=== PATIENT | male | born 1940 | race Caucasian/White ===

== ENCOUNTER 2016-08-23 05:34 | Observation (INO) ==
[2016-08-23] MEDS ORDERED: 0.9 % Sodium Chloride 500 ML IVC ONE (05:47)
[2016-08-23] MEDS ORDERED: Aspirin 81 MG TAB.CHEW PO ONE (05:47)
--- NOTE | 2016-08-23 05:50 | Emergency Department Note ---
Disposition Clinical Impression: Hyperglycemia Hypertension Qualifiers: Hypertension type: essential hypertension Qualified Code(s): I10 - Essential ( primary) hypertension Chest pain Qualifiers: Chest pain type: precordial pain Qualified Code(s): R07.2 - Precordial pain Disposition: Admitted As Inpatient Condition: Fair Chest Pain HPI - General Chief Complaint: ED General Medical Stated Complaint: HTN/ High BG Time Seen by Provider: 08/23/16 05:46 Source: patient Mode of arrival: ambulatory Limitations: no limitations Vital Signs Reviewed: Yes Nursing Notes Reviewed: Yes - History of Present Illness HPI Narrative: 76-year-old male history of hypertension, diabetes, tobacco use presents for evaluation of high blood pressure as well as hyperglycemia. Patient notes that during the night he "felt funny". States that he possibly overdid it with exerting himself yesterday. Patient's not able to quite accurately described as feeling but states that he felt hot and went outside to open the windows. The patient subsequently notes a left sided chest pressure without radiation. Nonexertional. Nonreproducible. No aggravating or alleviating factors. Patient denies a history of any ACS or cardiac disease. Patient denies any nausea vomiting. Does report some sweating. No abdominal pain. No dyspnea. Patient has not had any recent stress tests or cardio vascular exams. - Related Data Home Medications Medication Instructions Recorded Confirmed Aspirin [Ecotrin] 325 mg PO DAILY 08/23/16 08/23/16 Calcium Citrate 200 mg PO TID 08/23/16 08/23/16 Diltiazem [Cardizem] 30 mg PO DAILY 08/23/16 08/23/16 Folic Acid 1 mg PO DAILY 08/23/16 08/23/16 Lisinopril [Zestril] 20 mg PO DAILY 08/23/16 08/23/16 Metformin HCl [Glucophage] 1,000 mg PO BID 08/23/16 08/23/16 Methotrexate [Otrexup] 15 mg PO SA 08/23/16 08/23/16 Wood/Poly/HC *EAR* SOLN 1 drop OP QID 08/23/16 08/23/16 [Cortisporin *EAR* SOLN] Armstrong-3/Dha/Epa/Fish Oil [Fish Oil 1,000 mg PO DAILY 08/23/16 08/23/16 1,000 mg Softgel] Omeprazole [PriLOSEC] 20 mg PO DAILY 08/23/16 08/23/16 Penicillin VK [Pencillin VK] 500 mg PO BID 08/23/16 08/23/16 Simvastatin [Zocor] 40 mg PO HS 08/23/16 08/23/16 glipiZIDE [Glucotrol] 5 mg PO QAM 08/23/16 08/23/16 Allergies Allergy/AdvReac Type Severity Reaction Status Date / Time No Known Allergies Allergy Verified 08/23/16 05:37 All systems ED: reviewed and negative except as stated. Constitutional: Reports: as per HPI Eyes: Reports: as per HPI ENT ED: Reports: as per HPI Cardiovascular: Reports: as per HPI, chest pain Respiratory: Reports: as per HPI. Denies: cough, dyspnea Gastrointestinal: Reports: as per HPI. Denies: abdominal pain, nausea, vomiting Genitourinary: Reports: as per HPI Musculoskeletal: Reports: as per HPI Integumentary: Reports: as per HPI Neurological: Reports: as per HPI Psychiatric: Reports: as per HPI Endocrine: Reports: as per HPI Hematological/Lymphatic: Reports: as per HPI Chest Pain PMH - Past Medical History Medical history: Reports: hypertension, other - Social History Smoking Status: Never smoker Alcohol use: Reports: none Physical Exam - General Limitations: no limitations General appearance: alert, in no apparent distress - Head Head exam: atraumatic, normocephalic, normal inspection - Eye Eye exam: Present: normal appearance, PERRL, EOMI - ENT ENT exam: normal exam, mucous membranes moist - Neck Neck exam: Present: normal inspection, trachea midline - Chest Chest inspection: Present: normal inspection, symmetric chest wall rise - Respiratory Respiratory exam: Present: normal lung sounds bilaterally. Absent: respiratory distress - Cardiovascular Cardiovascular exam: Present: regular rate, normal rhythm - Abdominal Exam Abdominal exam: Present: soft, Non-Tender - Extremities Exam Extremities exam: Present: normal inspection. Absent: pedal edema - Back Exam Back exam: Present: normal inspection - Neurological Exam Neurological exam: Present: alert, oriented X3, CN II-XII intact - Skin Skin exam: Present: warm, dry, intact, normal color Course Course Narrative: Patient seen and examined. Patient is in no acute distress. Patient is hypertensive with systolic blood pressure in the 170s. 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 Patient also describes a funny feeling during the night. Patient is diabetic with multiple factors for ACS. Patient will get a cardiac evaluation including chest x-ray, EKG and troponin. Patient will also be given aspirin as well as nitroglycerin. Disposition likely admission to the hospital service for further evaluation and monitoring. - Reevaluation(s) Reevaluation #1: Notes that patient pain has improved following the second nitroglycerin Time: 06:28 Vital Signs Temperature 98.0 F 08/23/16 05:37 Pulse Rate 86 08/23/16 05:37 Respiratory Rate 18 08/23/16 05:37 Blood Pressure 177/105 08/23/16 05:37 O2 Sat by Pulse Oximetry 97 08/23/16 05:37 Temperature 98.1 F 08/23/16 18:46 Pulse Rate 79 08/23/16 18:46 Respiratory Rate 16 08/23/16 18:46 Blood Pressure 170/83 08/23/16 18:46 O2 Sat by Pulse Oximetry 96 08/23/16 18:46 Oxygen Delivery Oxygen Delivery Room Air Chest Pain - MDM Narrative Medical decision making narrative: 76-year-old male returns for evaluation of chest pain. Patient also notes a "funny feeling"over night. Patient noted a feeling of chest pressure just prior to arrival. Notes a nonexertional without radiation. Patient does have risk factors and has not been evaluated in the recent past by cardiology. Patient states his blood pressure was high. Patient is also noted be hyperglycemic. Patient's history was concerning for ACS in an elderly diabetic male. Patient received aspirin as well as nitroglycerin. Patient's pain did improve with the second dose of nitroglycerin. Patient's resting comfortably. Patient is not in any acute distress. Patient does not present with signs symptoms consistent of pulmonary embolism. No ripping or tearing chest pain in the back. Patient's symptoms are more consistent with ACS. Patient will be signed out to the oncoming provider for continued patient care. Patient will likely be admitted for ACS chest pain rule out. - Lab Data Lab results reviewed: Yes I reviewed the patient's lab results. Result diagrams: 08/23/16 06:28 08/23/16 06:28 Lab Results 08/23/16 08/23/16 08/23/16 Range/Units 06:28 06:28 06:28 WBC 9.5 (4.3-11.1) K/mcL RBC 3.79 L (4.19-5.50) M/mcL Hgb 11.0 L (12.9-16.9) g/dL Hct 33.9 L (37.5-50.1) % MCV 89.4 (83.0-100.0) fL MCH 29.0 (28.0-33.3) pg MCHC 32.4 (31.6-35.5) g/dL RDW 14.7 H (11.5-14.5) % Plt Count 304 (140-400) K/mcL MPV 9.6 (9.4-12.4) fL Immature Gran % 0.4 (0-4) % Seg Neutrophils % 74.6 % Lymphocytes % 14.5 % Monocytes % 9.1 % Eosinophils % 1.1 % Basophils % 0.3 % Neutrophils # 7.1 (1.6-8.9) K/mcL Lymphocytes # 1.4 (0.6-4.6) K/mcL Monocytes # 0.9 (0.0-1.3) K/mcL Eosinophils # 0.1 (0.0-0.6) K/mcL Basophils # 0.0 (0.0-0.2) K/mcL Sodium 134 L (136-145) mEq/L Potassium 4.0 (3.5-4.5) mEq/L Chloride 104 (98-109) mEq/L Carbon Dioxide 19 (19-29) mEq/L BUN 18 (8-26) mg/dL Creatinine 0.84 (0.72-1.25) mg/dL Est GFR ( Amer) > 60 (> 60) Est GFR (Non-Af Amer) > 60 (> 60) BUN/Creatinine Ratio 21 (6-26) Glucose 219 H (70-99) mg/dL Est Mean Plasma Glucose mg/dl Hemoglobin A1c ( - 5.6) % Calculated Osmolality 287 (280-300) Calcium 8.8 (8.6-10.8) mg/dL Phosphorus 3.2 (2.3-4.7) mg/dL Magnesium 1.5 L (1.6-2.6) mg/dL Troponin I (0-0.03) ng/mL B-Natriuretic Peptide 45 (0-100) pg/mL Triglycerides 87 (< 150) mg/dL Cholesterol 104 (< 200) mg/dL LDL Cholesterol, Calc 57 (0-99) mg/dL VLDL Cholesterol, Calc 17 (< 31) mg/dL HDL Cholesterol 30 L (40-59) mg/dL Cholesterol/HDL Ratio 3.5 (0-4.9) Vitamin B12 (213-816) pg/mL Folate (7.0-31.4) ng/mL 08/23/16 08/23/16 08/23/16 Range/Units 06:28 06:28 06:28 WBC (4.3-11.1) K/mcL RBC (4.19-5.50) M/mcL Hgb (12.9-16.9) g/dL Hct (37.5-50.1) % MCV (83.0-100.0) fL MCH (28.0-33.3) pg MCHC (31.6-35.5) g/dL RDW (11.5-14.5) % Plt Count (140-400) K/mcL MPV (9.4-12.4) fL Immature Gran % (0-4) % Seg Neutrophils % % Lymphocytes % % Monocytes % % Eosinophils % % Basophils % % Neutrophils # (1.6-8.9) K/mcL Lymphocytes # (0.6-4.6) K/mcL Monocytes # (0.0-1.3) K/mcL Eosinophils # (0.0-0.6) K/mcL Basophils # (0.0-0.2) K/mcL Sodium (136-145) mEq/L Potassium (3.5-4.5) mEq/L Chloride (98-109) mEq/L Carbon Dioxide (19-29) mEq/L BUN (8-26) mg/dL Creatinine (0.72-1.25) mg/dL Est GFR ( Amer) (> 60) Est GFR (Non-Af Amer) (> 60) BUN/Creatinine Ratio (6-26) Glucose (70-99) mg/dL Est Mean Plasma Glucose 189 mg/dl Hemoglobin A1c 8.2 H ( - 5.6) % Calculated Osmolality (280-300) Calcium (8.6-10.8) mg/dL Phosphorus (2.3-4.7) mg/dL Magnesium (1.6-2.6) mg/dL Troponin I 0.01 (0-0.03) ng/mL B-Natriuretic Peptide (0-100) pg/mL Triglycerides (< 150) mg/dL Cholesterol (< 200) mg/dL LDL Cholesterol, Calc (0-99) mg/dL VLDL Cholesterol, Calc (< 31) mg/dL HDL Cholesterol (40-59) mg/dL Cholesterol/HDL Ratio (0-4.9) Vitamin B12 301 (213-816) pg/mL Folate 15.4 (7.0-31.4) ng/mL - Radiology Data Radiology results reviewed: Yes I reviewed the patient's radiology results. Chest X-Ray 08/23/16 05:47 IMPRESSION: No acute cardiac or pulmonary disease. D/ / Kervin Lozano MD / Kervin Lozano MD Interpreting Provider: Kervin Lozano MD - EKG Data EKG attestation: Yes I reviewed and interpreted this EKG. EKG shows normal: sinus rhythm Rate: normal Rhythm: NSR [place]/QRS: normal Heart block present: 1st Degree Q waves: III, v1 QTc: other (388) Ectopy: PVC (multifocal) When compared to previous EKG there are: no significant changes Interpretation: unchanged when compared to prior tracing (date) (12/25/2006), nonspecific ST-T wave changes Heart Score - Score History: Moderately Suspicious EKG: Non Specific repolarisation Disturbance Age: Greater than 65 Risk Factors: Equal/Greater than 3 risk factor or history of atherosclerotic disease Troponin: Less than normal limit HEART Score Total: 6 S.B.A.R. - S.B.A.R. Situation: Demographics Background: Presenting Complaint, Relevant PMH, Meds, & Allergies Assessment: Vital Signs, Course and respsone to treatment, Patient/Family Expectation Recommendation: Barrier(s) to disposition, Recommendation based on pending studies, treatments, or consults S.B.A.R. Report Given to: Dr. Manuel [email or web address] Repor Time: 06:56 Attestation Statement - Attestation Attestation: I, Mumtaz Osman MD, personally evaluated this patient and discussed their management with the resident physician. I reviewed the resident's note and agree with the documented findings, medical decision making, and plan of care. 76-year-old male presents to the emergency department with a complaint of just not feeling all since about 9:30 last evening. Patient states that he just feels funny. He has had some episodes of diaphoresis and some left sided chest discomfort. Some occasional palpitations. Also feels short of breath. No cough or fever. On examination patient is a well-developed well-nourished elderly male in no acute distress. He is alert and oriented 3. There is no cyanosis or diaphoresis. He does appear somewhat anxious. Chest is nontender to palpation. Breath sounds are clear and equal bilaterally. Heart regular rate and rhythm. Abdomen is soft and nontender with normal bowel sounds. No gross focal neurological deficits. Labs reviewed. EKG shows a normal sinus rhythm with frequent PVCs, no acute changes. Chest x-ray negative. The hospitalist, Dr. Trivedi, was consulted and accepted admission of the patient.
[2016-08-23] MEDS: Nitroglycerin 0.4 MG TAB.SUBL SL ONE ×2 (06:06→06:13)
[2016-08-23 06:37] LABS: Basophils % 0.3 %; Eosinophils # 0.1 K/mcL (0.0-0.6); Eosinophils % 1.1 %; Hematocrit 33.9 % (37.5-50.1); Immature Granulocytes % 0.4 % (0-4); Lymphocytes # 1.4 K/mcL (0.6-4.6); Lymphocytes % 14.5 %; Mean Corpuscular HGB Conc 32.4 g/dL (31.6-35.5); Mean Corpuscular Volume 89.4 fL (83.0-100.0); Mean Platelet Volume 9.6 fL (9.4-12.4); Monocytes # 0.9 K/mcL (0.0-1.3); Monocytes % 9.1 %; Neutrophils # 7.1 K/mcL (1.6-8.9); Platelet Count 304 K/mcL (140-400); Red Blood Count 3.79 M/mcL (4.19-5.50); Red Cell Distribution Width 14.7 % (11.5-14.5); Segmented Neutrophils % 74.6 %
[2016-08-23 06:52] LABS: BUN/Creatinine Ratio 21 (6-26); Blood Urea Nitrogen 18 mg/dL (8-26); Calcium 8.8 mg/dL (8.6-10.8); Carbon Dioxide 19 mEq/L (19-29); Chloride 104 mEq/L (98-109); Glucose 219 mg/dL (70-99); Magnesium 1.5 mg/dL (1.6-2.6); Osmolality,Calculated 287 (280-300); Phosphorous 3.2 mg/dL (2.3-4.7); Sodium 134 mEq/L (136-145); eGFR For African Americans > 60 (> 60); eGFR For Non-African Americans > 60 (> 60)
[2016-08-23] MEDS ORDERED: Acetaminophen 325 MG TABLET PO PRN (07:21)
[2016-08-23] MEDS ORDERED: Naloxone 0.4 MG/ML INJ IVP PRN (07:21)
--- NOTE | 2016-08-23 07:25 | Emergency Department Note ---
Disposition Clinical Impression: Hyperglycemia Hypertension Qualifiers: Hypertension type: essential hypertension Qualified Code(s): I10 - Essential ( primary) hypertension Chest pain Qualifiers: Chest pain type: precordial pain Qualified Code(s): R07.2 - Precordial pain Disposition: Admitted As Inpatient Condition: Fair General Adult HPI - General Chief complaint: ED General Medical Stated complaint: HTN/ High BG Time Seen by Provider: 08/23/16 05:46 Source: patient Mode of arrival: ambulatory Limitations: no limitations - History of Present Illness Pain Scale: 2 - Related Data Home Medications Medication Instructions Recorded Confirmed Aspirin [Ecotrin] 325 mg PO DAILY 08/23/16 08/23/16 Calcium Citrate 200 mg PO TID 08/23/16 08/23/16 Diltiazem [Cardizem] 30 mg PO DAILY 08/23/16 08/23/16 Folic Acid 1 mg PO DAILY 08/23/16 08/23/16 Lisinopril [Zestril] 20 mg PO DAILY 08/23/16 08/23/16 Metformin HCl [Glucophage] 1,000 mg PO BID 08/23/16 08/23/16 Methotrexate [Otrexup] 15 mg PO SA 08/23/16 08/23/16 Wood/Poly/HC *EAR* SOLN 1 drop OP QID 08/23/16 08/23/16 [Cortisporin *EAR* SOLN] [place]-3/Dha/Epa/Fish Oil [Fish Oil 1,000 mg PO DAILY 08/23/16 08/23/16 1,000 mg Softgel] Omeprazole [PriLOSEC] 20 mg PO DAILY 08/23/16 08/23/16 Penicillin VK [Pencillin VK] 500 mg PO BID 08/23/16 08/23/16 Simvastatin [Zocor] 40 mg PO HS 08/23/16 08/23/16 glipiZIDE [Glucotrol] 5 mg PO QAM 08/23/16 08/23/16 Allergies Allergy/AdvReac Type Severity Reaction Status Date / Time No Known Allergies Allergy Verified 08/23/16 05:37 Constitutional: Reports: as per HPI Eyes: Reports: as per HPI ENT ED: Reports: as per HPI Cardiovascular: Reports: as per HPI, chest pain Respiratory: Reports: as per HPI. Denies: cough, dyspnea Gastrointestinal: Reports: as per HPI. Denies: abdominal pain, nausea, vomiting Genitourinary: Reports: as per HPI Musculoskeletal: Reports: as per HPI Integumentary: Reports: as per HPI Neurological: Reports: as per HPI Psychiatric: Reports: as per HPI Endocrine: Reports: as per HPI Hematological/Lymphatic: Reports: as per HPI Past Medical History - Past Medical History Medical history: Reports: hypertension, other Psychiatric history: Reports: no psych history - Social History Smoking Status: Never smoker Smokeless Tobacco Status: No Alcohol use: Reports: none Drug use: Reports: none Physical Exam - General Limitations: no limitations General appearance: alert, in no apparent distress Course Vital Signs Temperature 98.0 F 08/23/16 05:37 Pulse Rate 86 08/23/16 05:37 Respiratory Rate 18 08/23/16 05:37 Blood Pressure 177/105 08/23/16 05:37 O2 Sat by Pulse Oximetry 97 08/23/16 05:37 Temperature 98.1 F 08/23/16 18:46 Pulse Rate 79 08/23/16 18:46 Respiratory Rate 16 08/23/16 18:46 Blood Pressure 170/83 08/23/16 18:46 O2 Sat by Pulse Oximetry 96 08/23/16 18:46 Oxygen Delivery Oxygen Delivery Room Air Medical Decision Making - Lab Data Lab results reviewed: Yes I reviewed the patient's lab results. Result diagrams: 08/23/16 06:28 08/23/16 06:28 Lab Results 08/23/16 08/23/16 08/23/16 Range/Units 06:28 06:28 06:28 WBC 9.5 (4.3-11.1) K/mcL RBC 3.79 L (4.19-5.50) M/mcL Hgb 11.0 L (12.9-16.9) g/dL Hct 33.9 L (37.5-50.1) % MCV 89.4 (83.0-100.0) fL MCH 29.0 (28.0-33.3) pg MCHC 32.4 (31.6-35.5) g/dL RDW 14.7 H (11.5-14.5) % Plt Count 304 (140-400) K/mcL MPV 9.6 (9.4-12.4) fL Immature Gran % 0.4 (0-4) % Seg Neutrophils % 74.6 % Lymphocytes % 14.5 % Monocytes % 9.1 % Eosinophils % 1.1 % Basophils % 0.3 % Neutrophils # 7.1 (1.6-8.9) K/mcL Lymphocytes # 1.4 (0.6-4.6) K/mcL Monocytes # 0.9 (0.0-1.3) K/mcL Eosinophils # 0.1 (0.0-0.6) K/mcL Basophils # 0.0 (0.0-0.2) K/mcL Sodium 134 L (136-145) mEq/L Potassium 4.0 (3.5-4.5) mEq/L Chloride 104 (98-109) mEq/L Carbon Dioxide 19 (19-29) mEq/L BUN 18 (8-26) mg/dL Creatinine 0.84 (0.72-1.25) mg/dL Est GFR ( Amer) > 60 (> 60) Est GFR (Non-Af Amer) > 60 (> 60) BUN/Creatinine Ratio 21 (6-26) Glucose 219 H (70-99) mg/dL Est Mean Plasma Glucose mg/dl Hemoglobin A1c ( - 5.6) % Calculated Osmolality 287 (280-300) Calcium 8.8 (8.6-10.8) mg/dL Phosphorus 3.2 (2.3-4.7) mg/dL Magnesium 1.5 L (1.6-2.6) mg/dL Troponin I (0-0.03) ng/mL B-Natriuretic Peptide 45 (0-100) pg/mL Triglycerides 87 (< 150) mg/dL Cholesterol 104 (< 200) mg/dL LDL Cholesterol, Calc 57 (0-99) mg/dL VLDL Cholesterol, Calc 17 (< 31) mg/dL HDL Cholesterol 30 L (40-59) mg/dL Cholesterol/HDL Ratio 3.5 (0-4.9) Vitamin B12 (213-816) pg/mL Folate (7.0-31.4) ng/mL 08/23/16 08/23/16 08/23/16 Range/Units 06:28 06:28 06:28 WBC (4.3-11.1) K/mcL RBC (4.19-5.50) M/mcL Hgb (12.9-16.9) g/dL Hct (37.5-50.1) % MCV (83.0-100.0) fL MCH (28.0-33.3) pg MCHC (31.6-35.5) g/dL RDW (11.5-14.5) % Plt Count (140-400) K/mcL MPV (9.4-12.4) fL Immature Gran % (0-4) % Seg Neutrophils % % Lymphocytes % % Monocytes % % Eosinophils % % Basophils % % Neutrophils # (1.6-8.9) K/mcL Lymphocytes # (0.6-4.6) K/mcL Monocytes # (0.0-1.3) K/mcL Eosinophils # (0.0-0.6) K/mcL Basophils # (0.0-0.2) K/mcL Sodium (136-145) mEq/L Potassium (3.5-4.5) mEq/L Chloride (98-109) mEq/L Carbon Dioxide (19-29) mEq/L BUN (8-26) mg/dL Creatinine (0.72-1.25) mg/dL Est GFR ( Amer) (> 60) Est GFR (Non-Af Amer) (> 60) BUN/Creatinine Ratio (6-26) Glucose (70-99) mg/dL Est Mean Plasma Glucose 189 mg/dl Hemoglobin A1c 8.2 H ( - 5.6) % Calculated Osmolality (280-300) Calcium (8.6-10.8) mg/dL Phosphorus (2.3-4.7) mg/dL Magnesium (1.6-2.6) mg/dL Troponin I 0.01 (0-0.03) ng/mL B-Natriuretic Peptide (0-100) pg/mL Triglycerides (< 150) mg/dL Cholesterol (< 200) mg/dL LDL Cholesterol, Calc (0-99) mg/dL VLDL Cholesterol, Calc (< 31) mg/dL HDL Cholesterol (40-59) mg/dL Cholesterol/HDL Ratio (0-4.9) Vitamin B12 301 (213-816) pg/mL Folate 15.4 (7.0-31.4) ng/mL - Radiology Data Radiology results reviewed: Yes I reviewed the patient's radiology results. Chest X-Ray 08/23/16 05:47 IMPRESSION: No acute cardiac or pulmonary disease. D/ / Kervin Lozano MD / Kervin Lozano MD Interpreting Provider: Kervin Lozano MD S.B.Maurice - STrell Situation: Demographics Background: Presenting Complaint, Relevant PMH, Meds, & Allergies Assessment: Vital Signs, Course and respsone to treatment, Patient/Family Expectation Recommendation: Barrier(s) to disposition, Recommendation based on pending studies, treatments, or consults S.B.A.RStuart Report Given to: Dr. Shikha Heard Repor Time: 07:25 Attestation Statement - Attestation Attestation: I, Mumtaz Osman MD, personally evaluated this patient and discussed their management with the resident physician. I reviewed the resident's note and agree with the documented findings, medical decision making, and plan of care. Please see additional note from this emergency department visit.
[2016-08-23] MEDS ORDERED: D5% in Water 1,000 ML IVC PRN (07:58)
[2016-08-23] MEDS ORDERED: *HR* Dextrose 50 % in Water (Syg) 50 ML SYRINGE IVP PRN (07:58)
[2016-08-23] MEDS ORDERED: Dextrose Gel 15 GM PO PRN ×2 (07:58)
[2016-08-23 08:12] LABS: Chol/HDL Ratio 3.5 (0-4.9); Cholesterol 104 mg/dL (< 200); HDL Cholesterol 30 mg/dL (40-59); LDL Cholesterol,Calculated 57 mg/dL (0-99); Triglycerides 87 mg/dL (< 150)
[2016-08-23 08:20] LABS: Hemoglobin A1C 8.2 %
--- NOTE | 2016-08-23 08:38 | Internal Med History&Physical ---
Date of Encounter: 08/23/16 Time of Encounter: 08:25 Assessment and Plan (1) Chest pain Current visit: Yes Status: Acute Acute precordial chest pain relieved with nitroglycerin. Concern for underlying coronary artery disease. We will trend troponins and do a cardiac stress test. Check lipid profile. Place on telemetry. Qualifiers: Chest pain type: precordial pain Qualified Code(s): R07.2 - Precordial pain (2) Diabetes mellitus, type 2 Current visit: Yes Status: Chronic Place patient on diabetic diet when able to eat. Monitor blood sugars. Sliding scale insulin. Check A1c level. 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 Uncertain etiology. Will monitor oxygen saturation while in the hospital. Could be related to an adverse reaction to penicillin. We will hold penicillin for now. Complete antibiotic course with ciprofloxacin for 2 more days. Qualifiers: Dyspnea type: shortness of breath Qualified Code(s): R06.02 - Shortness of breath (4) Hypertension Current visit: Yes Status: Chronic Blood pressure is elevated. Will monitor blood pressure and continue home medications. Adjust antihypertensive regimen accordingly. Qualifiers: Hypertension type: essential hypertension Qualified Code(s): I10 - Essential (primary) hypertension Internal Medicine - H&P: HPI Chief complaint: Funny feeling in his head, shortness of breath and chest pain Admitted From: Emergency Dept Plans for Post Hospital Care: Home History of present illness: Mr. Abel is a 76 year old male patient with history of type 2 diabetes mellitus, essential hypertension presented to the ER with complaints of generalized malaise, shortness of breath and a "funny feeling in his head" that he describes as some sort of confusion without any headache that began last night. He denies any associated focal weakness or numbness. No nausea or vomiting. No bowel or bladder incontinence. He had associated shortness of breath and a feeling of inability to get enough air. He tried to walk it out but it did not improve his symptoms. So he decided to come to the ER today. On arrival to the ER today, he had some left-sided chest pain that was nonradiating and rated about 4 out of 10 in severity. He received nitroglycerin and that seemed to relieve his chest pain completely. He developed a headache afterwards. He feels slightly better now but still feels a little bit different in his head. He had recently been started on oral penicillin for left ear infection that seems to have improved now. He has no history of penicillin allergies. His blood sugars were also elevated today than usual at 260 (usually 150) in the morning. He has had no prior episodes of chest pain. No palpitations. No orthopnea or PND. No pedal edema. Past Med Surg Social Fam HX - Past Medical History Attestation: Yes The following information was validated with the patient. Source: patient Medical history: diabetes, hypertension, other Psychiatric history: no psych history - Social History Smoking Status: Never smoker Smokeless Tobacco Status: No Alcohol use: none Drug use: none Internal Medicine - H&P: Meds Aspirin [Ecotrin] 325 mg PO DAILY 08/23/16 [History] Calcium Citrate 200 mg PO TID 08/23/16 [History] Diltiazem [Cardizem] 30 mg PO DAILY 08/23/16 [History] Folic Acid 1 mg PO DAILY 08/23/16 [History] Lisinopril [Zestril] 20 mg PO DAILY 08/23/16 [History] Metformin HCl [Glucophage] 1,000 mg PO BID 08/23/16 [History] Methotrexate [Otrexup] 15 mg PO SA 08/23/16 [History] Wood/Poly/HC *EAR* SOLN [Cortisporin *EAR* SOLN] 1 drop OP QID 08/23/16 [History] [place]-3/Dha/Epa/Fish Oil [Fish Oil 1,000 mg Softgel] 1,000 mg PO DAILY 08/23/16 [History] Omeprazole [PriLOSEC] 20 mg PO DAILY 08/23/16 [History] Penicillin VK [Pencillin VK] 500 mg PO BID 08/23/16 [History] Simvastatin [Zocor] 40 mg PO HS 08/23/16 [History] glipiZIDE [Glucotrol] 5 mg PO QAM 08/23/16 [History] Allergies No Known Allergies Allergy (Verified 08/23/16 05:37) All Systems PM: A 10-system review of systems was performed and is negative for pertinent findings except as documented above in the HPI. - Constitutional Constitutional: malaise, no chills, no fever(s), no night sweats - EENT Eyes: no change in vision, no discharge, no pain, no photophobia Ears: no ear discharge, no ear pain, no tinnitus Nose, mouth and throat: no dysphagia, no nasal discharge, no neck pain, no sore throat - Cardiovascular Cardiovascular ROS IM: chest pain, no diaphoresis, no dyspnea, no lightheadedness, no palpitations, no syncope - Respiratory Respiratory: dyspnea, no cough, no wheezing, no excessive phlegm production - Gastrointestinal Gastrointestinal: no abdominal pain, no diarrhea, no hematemesis, no hematochezia, no melena, no nausea, no vomiting - Musculoskeletal Musculoskeletal ROS IM: no numbness, no tingling - Integumentary Integumentary IM: no rash, no unusual bruising - Neurological Neurological ROS: headache(s), no confusion, no convulsions, no focal weakness, no numbness, no tingling, no tremor(s) - Hematologic/Lymphatic Hematologic/Lymphatic: no easy bruising - Constitutional Vitals: Temp Pulse Resp BP Pulse Ox 98.0 F 58 16 160/76 93 08/23/16 08:10 08/23/16 08:10 08/23/16 08:10 08/23/16 08:10 08/23/16 08:10 General appearance: Present: cooperative, mild distress, A&O X 3, pleasant, obese, answers questions appropriately - Eye Eye exam: Present: EOMI, PERRL, conjuntiva pink, sclera anicteric - Neck Neck exam general surgery: Present: supple, trachea midline. Absent: lymphadenopathy - Respiratory Respiratory exam: Present: CTAB. Absent: accessory muscle use, rales, rhonchi, wheezes - Cardiovascular Cardiovascular exam: Present: RRR, +S1, +S2. Absent: diastolic murmur, gallop, rubs, systolic murmur - GI/Abdominal GI/Abdominal exam: Present: normal bowel sounds, soft, no peritoneal signs. Absent: distended, tenderness - Extremities Exam Extremities exam: Present: warm, radial pulses palpable and symetrical. Absent : calf tenderness, cyanotic, pedal edema - Neurological Exam Neurological exam: Present: alert, CN II-XII intact, oriented X3, no focal deficits. Absent: facial droop, speech deficit - Skin Skin exam: Present: dry, intact Internal Med - H&P Results - Labs CBC & Chem 7: 08/23/16 06:28 08/23/16 06:28 - EKG Data -: EKG Interpreted by Myself EKG shows normal: sinus rhythm - EKG Data EKG comments: 08/23/16 08:40 Normal sinus rhythm with PVCs - Impressions Impressions Chest X-Ray 08/23/16 05:47 IMPRESSION: No acute cardiac or pulmonary disease. D/ / Kervin Lozano MD / Kervin Lozano MD Interpreting Provider: Kervin Lozano MD - Attending Attestation This document has been at least partially created by [employer] voice recognition technology by Dr. Trivedi. Errors in grammar, wording or other phrases may exist. If errors are found after the documentation is signed, they will be addressed individually in the addendum section of this document when appropriate.
--- NOTE | 2016-08-23 08:54 | Electrocardiograph Report ---
[place] [address] Test Date: 2016-08-23 Pat Name: Chris Abel Department: 102 Room: 3B Gender: M Seat Pack Inspector: Irlanda : 1940 Requested By: German Braxton Order Number: [id number] Reading MD: Suri Gaines Measurements Intervals [place] Rate: 82 P: -36 NH: 191 QRS: 17 QRSD: 68 T: 37 QT: 350 QTc: 388 Interpretive Statements SINUS RHYTHM WITH FREQUENT VENTRICULAR PREMATURE COMPLEXES ABNORMAL RHYTHM ECG Electronically Signed On 08-23-2016 8:53:07 EDT by Suri Gaines
[2016-08-23] MEDS ORDERED: Magnesium Sulfate 2 GM in D5% in Water 100 ML IVPB ONE (09:41)
[2016-08-23] MEDS: Aspirin Enteric Coated 325 MG Tablet PO SCH (10:18)
[2016-08-23] MEDS: Folic Acid 1 MG TABLET PO SCH (10:18)
[2016-08-23] MEDS: Lisinopril 20 MG TABLET PO SCH (10:18)
[2016-08-23] MEDS: CALCIUM CITRATE 200 MG PO SCH ×3 (10:20→20:02)
[2016-08-23] MEDS: Insulin LISPRO 300 UNITS/3 ML VIAL SQ SCH ×2 (10:21→16:44)
[2016-08-23 11:04] LABS: Folate 15.4 ng/mL (7.0-31.4)
[2016-08-23] MEDS ORDERED: Insulin LISPRO 300 UNITS/3 ML VIAL SQ SCH (21:00)
[2016-08-24] MEDS ORDERED: Regadenoson 0.4 MG/5 ML SYRINGE IVP ONE (06:20)
[2016-08-24] MEDS: Aspirin Enteric Coated 325 MG Tablet PO SCH (09:48)
[2016-08-24] MEDS: Folic Acid 1 MG TABLET PO SCH (09:48)
[2016-08-24] MEDS: Lisinopril 20 MG TABLET PO SCH (09:48)
[2016-08-24] MEDS: CALCIUM CITRATE 200 MG PO SCH (09:49)
[2016-08-24] MEDS: Insulin LISPRO 300 UNITS/3 ML VIAL SQ SCH ×2 (09:49→12:42)
[2016-08-24 11:03] VITALS: BP 144/66
--- NOTE | 2016-08-24 11:18 | Nuclear Medicine Stress Report ---
Regadenoson Nuclear Stress Name: Chris Abel Date of Study: 08/24/2016 Date: 1940 Ht: 69.0 in Medical Record#: [id number] Age: 76 Wt: 200.0 lb Gender: Male Order #: [id number] Location: [facility] Room: [facility] Supervising Provider: Bianka Dover CNP Reading Physician: Cortez Heck DO, FAC, [facility] Ordering Physician: Inga Arias CNP Primary Care Physician: Roberth Vickers MD Stress Technologist: Wero Hilario [employer] Records Clerk: Kiki Davies Indications: Shortness of breath Impression: Pharmacologic stress ECG is negative for ischemia at level of heart rate achieved. Gated EF = 81%. Small sized, mild intensity, fixed apical inferior defect consistent with artifact. Perfusion imaging was negative for ischemia or infarct. History: Hypertension Diabetes Hypercholesteremia Stress Test Summary: Stress Test Type: Pharmacologic Baseline Information: Initial Heart Rate: 66 Blood Pressure: 148/82 Stress Information: Test Terminated Due to (primary): As per protocol Maximum Blood Pressure: 140/80 Maximum Heart Rate: 92 Percent Maximum Heart Rate Achieved: 63 Double Product: 07653 METS Reached: 1 Symptoms: No chest symptoms Nuclear Summary: SPECT myocardial perfusion imaging using Tc99m Sestamibi given intravenously was performed at rest and following cardiac stress testing. The resting images were obtained following initial dose of 11.6 mCi. Following stress an additional dose of 35 mCi was given at peak exercise or 30 seconds post regadenoson infusion. Medication Given: Time Medication Dose Units Route Findings: Stress Note * Resting ECG demonstrated normal sinus rhythm. * No baseline arrhythmias were noted. * Pharmacologic stress ECG is negative for ischemia at level of heart rate achieved. * Occasional PVCs noted during stress. * Patient had no chest pain during stress. * Normal hemodynamic responses to pharmacologic stress. Study Quality * Study quality is average. Gated EF % * Gated EF = 81%. Left Ventricle * The left ventricle is not dilated. LVEDV = 68 mL. NORMALS * Normal wall motion. Inferior Perfusion Rest * The apical inferior segment shows a mild reduction in perfusion. Inferior Perfusion Stress * The apical inferior segment shows a mild reduction in perfusion. TID * No evidence of transient ischemic dilatation. TID ratio = 0.89. Lung Uptake * There is no evidence of increase lung uptake. Updated by Cortez Heck DO, RAYO, DAX, KAM on 08/24/2016 11:12:36 AM electronically signed on 08/24/2016 11:13:32 AM with status of Final
--- NOTE | 2016-08-24 12:57 | Discharge Summary ---
Date of Encounter: 08/24/16 Time of Encounter: 12:40 - Discharge Diagnosis (1) Chest pain Priority: Primary Status: Acute Comments: Patient was admitted through the emergency room yesterday morning stating that he felt funny. States that he possibly overdid it with exertion the day prior at home working in the yard. Patient reports the emergency room staff that he had left-sided chest pressure without radiation. It was not related to exertion nor was it reproducible. He denies any cardiac history. There is no nausea vomiting or shortness of breath. He did report some diaphoresis. Apparently the chest pain was relieved with nitroglycerin. Today during his examination after his stress test. He tells me that he never had any chest pressure or anything at all, he denies any pain or shortness of breath. He says that he feels fairly certain that he had a drug reaction between his narcotic pain medication and his antibiotic that he was taking for an ear infection. He said that he felt woozy but adamantly denies any chest pain or pressure or discomfort. Stress test results showed gated EF of 81% and perfusion imaging negative for ischemia or infarct. S1 and S2 heard, RRR. No gallops, rubs, murmurs. He is not short of breath. He has no peripheral edema. His EKG on admission showed sinus rhythm with frequent PVCs. His troponins were negative 3. Qualifiers: Chest pain type: precordial pain Qualified Code(s): R07.2 - Precordial pain (2) Hypertension Priority: Secondary Status: Chronic Comments: Chronic. Blood pressures are at goal for age. Continue home medications. Qualifiers: Hypertension type: essential hypertension Qualified Code(s): I10 - Essential (primary) hypertension (3) Hyperglycemia Priority: Secondary Status: Chronic Comments: Patient's A1c is 8.2. Accu-Cheks have been consistently over 200 since admission. Patient takes metformin and glipizide at home. He will need to follow up with primary care physician for further education and possible dosage adjustment or medication change. (4) Diabetes mellitus, type 2 Priority: Secondary Status: Chronic Comments: Plan as above Qualifiers: Diabetes mellitus complication status: with hyperglycemia Diabetes mellitus rn long term care insulin use: without rn long term care use Qualified Code(s): E11.65 - Type 2 diabetes mellitus with hyperglycemia (5) Dyspnea Priority: Secondary Status: Acute Comments: Patient denies shortness of breath to me. He did report shortness of breath on admission. He does report approximately 1 week history of cough that is infrequent and nonproductive. He denies fevers. He said that he blames it on his since she is a smoker. Rhonchi heard on left side posteriorly with faint expiratory wheezing heard in left apex. Patient has a leukocytosis, fever, tachycardia. He is not short of breath at rest nor is he required supplemental oxygen to maintain his saturations. Chest x-ray was negative. We will send patient home with Mucinex. He will be instructed to follow-up with the primary care physician. Qualifiers: Dyspnea type: shortness of breath Qualified Code(s): R06.02 - Shortness of breath - Discharge Medications Prescriptions: GuaiFENesin ER [Mucinex] 600 mg PO BID PRN #60 tbbp.12hr PRN Reason: Cough Home Medications: Aspirin [Ecotrin] 325 mg PO DAILY 08/23/16 [History] Calcium Citrate 200 mg PO TID 08/23/16 [History] Diltiazem [Cardizem] 30 mg PO DAILY 08/23/16 [History] Folic Acid 1 mg PO DAILY 08/23/16 [History] Lisinopril [Zestril] 20 mg PO DAILY 08/23/16 [History] Metformin HCl [Glucophage] 1,000 mg PO BID 08/23/16 [History] Methotrexate [Otrexup] 15 mg PO SA 08/23/16 [History] Wood/Poly/HC *EAR* SOLN [Cortisporin *EAR* SOLN] 1 drop OP QID 08/23/16 [History] [place]-3/Dha/Epa/Fish Oil [Fish Oil 1,000 mg Softgel] 1,000 mg PO DAILY 08/23/16 [History] Omeprazole [PriLOSEC] 20 mg PO DAILY 08/23/16 [History] Simvastatin [Zocor] 40 mg PO HS 08/23/16 [History] glipiZIDE [Glucotrol] 5 mg PO QAM 08/23/16 [History] Ciprofloxacin [Cipro] 500 mg PO BID tablet 08/24/16 [Rx] GuaiFENesin ER [Mucinex] 600 mg PO BID PRN #60 tbbp.12hr 08/24/16 [Rx] Patient Taking Own Medication 0 each PO TID each 08/24/16 [Rx] Allergies/Adverse Reactions: Allergies No Known Allergies Allergy (Verified 08/23/16 05:37) Date of admission: 08/23/16 07:41 Primary care physician: Roberth Vickers Jr, MD Discharging clinician: Inga Arias Anticipated date of discharge: 08/24/16 - Patient Status Disposition: Home, Self-Care Condition: Good Functional capacity at discharge: independent ambulation Overall status at discharge: patient is back to baseline - Discharge Instructions Instructions: Ciprofloxacin (By mouth), Chest Pain (DC), Otitis Media (GEN) Follow Up With: Roberth Vickers Jr, MD [Primary Care Provider] - 08/29/16 10:00 am Additional Instructions: Follow-up the primary care physician as scheduled Continue her home medications Continue taking Cipro. Start taking Mucinex as needed for cough. Return to the emergency department as needed for any new pain or conditions that are concerning. - Diet and Activity Activity: resume usual activities as tolerated Diet: diabetic diet Interval History: Patient presented to the emergency room yesterday with complaint of chest pressure. He said that he felt funny. He feels that he possibly exerted himself too much the prior day. He reports that he felt hot and went outside to get some air and began to have left-sided chest pressure without radiation. No abdominal pain, no dyspnea, no nausea or vomiting. He did report diaphoresis. The pain was not reproducible and not related to exertion. He also reports hyperglycemia. A1c is elevated and blood sugars up and consistently over 200 since he has been here. He will continue his medications at home. We did discuss diabetic diet and count carbohydrates. Patient did not seem responsive to this. He will need to follow-up with his primary care physician for further education, medication adjustments or possible change. Patient's chest x-ray was negative. Troponins were negative. EKG was normal sinus rhythm with PVCs. Stress test showed a gated EF of 81% and perfusion imaging was negative for ischemia or infarct. Patient actually denies any form of chest pain or pressure to me at all. He says that he only felt dizzy and woozy due to what he believes was an interaction between his amoxicillin and the Vicodin that he takes for chronic pain. His antibiotic has been changed to Cipro. He is reported a one-week history of infrequent, nonproductive cough to me. He blames on his who is a smoker. Right-sided lung sounds are clear posteriorly, left side rhonchi heard throughout posteriorly with faint expiratory wheezing heard left upper. He has been afebrile, without leukocytosis, normotensive, pulse within normal limits. He denies fever at home. He denies chest pain or dyspnea on exertion. He is not requiring oxygen. We will send him home with Mucinex to use when necessary cough. Patient is stable for discharge. Hospital course: Mr. Abel is a 76 year old male - Time Spent with Patient Total time spent providing and/or coordinating discharge services: Less than 30 minutes - Constitutional Vitals: Temp Pulse Resp BP Pulse Ox 97.7 F 73 15 144/66 96 08/24/16 10:57 08/24/16 10:57 08/24/16 10:57 08/24/16 10:57 08/24/16 10:57 General appearance: Present: cooperative, mild distress, A&O X 3, pleasant, obese, answers questions appropriately - Head Head exam: Present: normal inspection - Eye Eye exam: Present: normal appearance, conjuntiva pink - ENT ENT exam: Present: mucous membranes moist, normal exam, normal external ear exam - Neck Neck exam general surgery: Present: normal inspection. Absent: lymphadenopathy , tenderness - Respiratory Respiratory exam: Present: rhonchi, wheezes. Absent: accessory muscle use, chest wall tenderness, rales, respiratory distress - Cardiovascular Cardiovascular exam: Present: RRR, +S1, +S2. Absent: diastolic murmur, systolic murmur - GI/Abdominal GI/Abdominal exam: Present: normal bowel sounds, soft. Absent: distended, hepatomegaly, tenderness - Extremities Exam Extremities exam: Present: normal capillary refill, warm, radial pulses palpable and symetrical. Absent: pedal edema, tenderness - Neurological Exam Neurological exam: Present: alert, oriented X3, no focal deficits, strengths equal and symetr throughout. Absent: facial droop, speech deficit
== END 2016-08-24 13:50 | disposition home or self-care (01) ==
LOC: EMEROO 05:34 → 3BNU 05:34
PROVIDERS: ADMIT Internal Medicine; ATTEND Registered Nurse